=== PATIENT | female | born 2000 | race Caucasian/White ===

== ENCOUNTER 2020-06-14 10:52 | Emergency (ER) | payer OTHER ==
[~2020-06-14] VITALS: Ht 152.4 cm; Wt 49.9 kg
[2020-06-14] MEDS ORDERED: ESTARYLLA1 EACH (11:05)
== END 2020-06-14 17:10 | disposition home or self-care (01) ==
LOC: ER 10:52
DX: N39.0 Urinary tract infection, site not specified (principal); R10.2 Pelvic and perineal pain